=== PATIENT | male | born 1995 | race Asian ===

== ENCOUNTER 2018-10-04 04:50 | Emergency (ER) | payer MEDICAID ==
[~2018-10-04] VITALS: Ht 165.1 cm; Wt 54.4 kg
--- NOTE | 2018-10-04 04:50 | NUR ---
PT BIBA BLS. TAKEN TO BED 9
[2018-10-04 04:51] VITALS: BP 96/60
--- NOTE | 2018-10-04 04:53 | NUR ---
Dr. Garcia evaluating patient.
--- NOTE | 2018-10-04 04:55 | NUR ---
PT TO ED VIA EMS FOR ALTERED MENTAL STATUS. PER EMS PT FOUND IN FRONT OF 10/24. EMS UNABLE TO OBTAIN ANY INFO FROM PT PT REFUSING TO ANSWER QUESTIONS. PT REFUSING TO PROVIDE STAFF WITH INFORMATION BUT ABLE TO FOLLOW COMMANDS. PT NOTED TO LAUGH AND SMILE WHEN ASKED QUESTIONS. PT APPEARS CLEAN, WITH STRONG ODOR OF CIGARETTES. ER MD AT BEDSIDE FOR EVALUATION. CHARGE NURSE TO CALL PD IN ATTEMPT TO OBTAIN MORE INFORMATION.
--- NOTE | 2018-10-04 04:57 | NUR ---
Called [facility], spoke to Laura to obtain information about this patient. Officer's were only able to get patient's first name which they stated was Ambrocio, unable to get a last name, unable to get . Patient refusing to answer questions, follows commands.
--- NOTE | 2018-10-04 05:05 | NUR ---
IV START: L AC 20G, FLUSHED WELL W/O RESISTANCE. NO REDNESS OR SWELLING NOTED. PT TOLERATED WELL. Addendum: 10/04/18 at 0522 by [email or web address] IV START: L AC 20G, FLUSHED WELL W/O RESISTANCE; NO REDNESS OR SWELLING NOTED. PT TOLERATED WELL. LABS DRAWN AT THIS TIME AND SENT TO LAB BY
--- NOTE | 2018-10-04 05:07 | NUR ---
Patient being evaluated by Dr. Garcia at bedside.
--- NOTE | 2018-10-04 05:11 | NUR ---
PT PROVIDED URINAL, ENCOURAGED TO PROVIDED URINE SAME. PT PRIVACY AT THIS TIME.
[2018-10-04 05:37] LABS: ANION GAP 9.9 (8-16); CARBON DIOXIDE 30.2 mmol/L (21-32); CHLORIDE 104 mmol/L (98-107); CREATININE 0.9 mg/dL (0.7-1.3); GFR ARICAN-AMERICAN 129 mL/min (>90); GLUCOSE 99 mg/dL (74-106); POTASSIUM 3.1 mmol/L (3.5-5.1); SODIUM SERUM 141 mmol/L (136-145); UREA NITROGEN, BLOOD 7 mg/dL (7-18)
[2018-10-04 05:37] LABS: BARBITURATE, URINE NEG. ng/ml (NEG <=200); BENZODIAZEPINE, URINE NEG. ng/mL (NEG <=200); CANNABINOID, URINE POS. ng/mL (NEG <=50); COCAINE, URINE NEG. ng/mL (NEG <=300); OPIATE, URINE NEG. ng/mL (NEG <=2000); PHENCYCLIDINE SCREEN,URINE NEG. ng/mL (NEG <=25)
[2018-10-04 05:43] LABS: ALBUMIN 4.3 g/dL (3.4-5.0); ASPARTATE AMINOTRANSFERASE 12 U/L (15-37)
[2018-10-04 05:49] LABS: ACETAMINOPHEN < 0.5 ug/ml (10-30); SALICYLATE < 2.8 mg/dL (2.8-20.0)
--- NOTE | 2018-10-04 06:00 | NUR ---
PT CONTINUES TO LAUGH AND SMILE WHEN SPOKEN TO. STILL REFUSING TO SPEAK OR ANSWER QUESTIONS.
[2018-10-04 06:02] LABS: BASOPHILS % (AUTO) 0.3 % (0.0-2.0); EOSINOPHILS % (AUTO) 0.2 % (0.0-4.0); HEMATOCRIT 45.6 % (36-52); HEMOGLOBIN 15.2 g/dL (12.0-18.0); LYMPHOCYTES # (AUTO) 1.4 K/uL (2.0-11.5); LYMPHOCYTES % (AUTO) 13.8 % (20.5-51.1); MEAN CORPUSCULAR HEMOGLOBIN 31 pg (27-31); MEAN CORPUSCULAR HGB CONC 33 g/dL (33-37); MEAN CORPUSCULAR VOLUME 92.4 fL (80-94); MONOCYTES # (AUTO) 0.4 K/uL (0.8-1.0); MONOCYTES % (AUTO) 4.5 % (1.7-9.3); NEUTROPHILS % (AUTO) 81.2 % (42.2-75.2); PLATELET COUNT (AUTO) 317 K/uL (140-450); RED BLOOD CELL COUNT(AUTO) 4.94 MIL/uL (4.20-6.10); RED CELL DISTRIBUTION WIDTH 13.4 % (11.6-13.7); WHITE BLOOD COUNT (AUTO) 9.9 K/uL (4.8-10.8)
--- NOTE | 2018-10-04 06:54 | NUR ---
IV removed, catheter intact and site benign. Applied folded 4x4 gauze and tape to stop bleeding.
--- NOTE | 2018-10-04 07:20 | NUR ---
REPORT RECEIVED FROM PAU HASSAN FOR CONTINUATION OF CARE.
--- NOTE | 2018-10-04 07:45 | NUR ---
PT RESTING IN BED.
[2018-10-04 08:13] VITALS: BP 115/65
--- NOTE | 2018-10-04 08:14 | NUR ---
Patient discharged with v/s stable. Written and verbal after care instructions given and explained. Pt is non verbal but is alert and responding appropriately with head shaking yes and no, holding my hand when i reach out to assist him up. Pt was able to put his jacket and shoes on by himself. Road tested and pt passed with a steady gait. Provided pt with bus pass and a note that had his address on it, pt confirmed the address was correct with a "yes" head shake.
== END 2018-10-04 08:14 | disposition home or self-care (01) ==
LOC: MED 04:50
DX: F15.10 Other stimulant abuse, uncomplicated (principal); F12.10 Cannabis abuse, uncomplicated
CPT/HCPCS: 36415; 80053; 80305; 85025; 99283; G0480; G0482

== ENCOUNTER 2022-10-24 17:38 | Emergency (ER) | payer SELFPAY ==
[~2022-10-24] VITALS: Ht 172.7 cm; Wt 72.6 kg
[~2022-10-24 17:38] MED LIST: OLAN5TAB65 PO
[2022-10-24 17:47] VITALS: BP 108/53; PULSE 115; RESP 22; TEMP 98; O2SAT 98
[2022-10-24 18:22] LABS: APPEARANCE,URINE CLEAR (CLEAR); BILIRUBIN,URINE NEGATIVE (NEGATIVE); BLOOD, URINE NEGATIVE (NEGATIVE); COLOR,URINE YELLOW (YELLOW); LEUKOCYTE ESTERASE ,URINE NEGATIVE (NEGATIVE); NITRITE, URINE NEGATIVE (NEGATIVE); UGLUCOSE NEGATIVE (NEGATIVE)
[2022-10-24 18:24] LABS: HEMATOCRIT 41.5 % (36-52); MEAN CORPUSCULAR HEMOGLOBIN 31 pg (27-31); MEAN CORPUSCULAR HGB CONC 34 g/dL (33-37); MEAN CORPUSCULAR VOLUME 91.4 fL (80-94); PLATELET COUNT (AUTO) 276 K/uL (140-450); RED BLOOD CELL COUNT(AUTO) 4.55 MIL/uL (4.20-6.10); RED CELL DISTRIBUTION WIDTH 12.6 % (11.6-13.7)
[2022-10-24 18:33] LABS: BARBITURATE, URINE NEGATIVE ng/ml (NEG <=200); BENZODIAZEPINE, URINE NEGATIVE ng/mL (NEG <=200); CANNABINOID, URINE POSITIVE ng/mL (NEG <=50); COCAINE, URINE NEGATIVE ng/mL (NEG <=300); OPIATE, URINE NEGATIVE ng/mL (NEG <=2000); PHENCYCLIDINE SCREEN,URINE NEGATIVE ng/mL (NEG <=25)
[2022-10-24 18:50] LABS: ACETAMINOPHEN < 0.5 ug/ml (10-30); ALBUMIN 4.1 g/dL (3.4-5.0); ASPARTATE AMINOTRANSFERASE 22 U/L (15-37); CHLORIDE 99 mmol/L (98-107); CREATININE 0.9 mg/dL (0.6-1.3); GFR ARICAN-AMERICAN 129 mL/min (>90); GLUCOSE 119 mg/dL (74-106); SALICYLATE < 2.8 mg/dL (2.8-20.0); SODIUM SERUM 135 mmol/L (136-145); TOTAL BILIRUBIN 0.4 mg/dL (0.0-1.0); UREA NITROGEN, BLOOD 11 mg/dL (7-18)
[2022-10-24 18:55] LABS: BASOPHILS % (MANUAL) 0 % (0-2); EOSINOPHILS % (MANUAL) 1 % (0-4); LYMPHOCYTES % (MANUAL) 7 % (20-46); MONOCYTES % (MANUAL) 9 % (5-12)
--- NOTE | 2022-10-24 19:06 | NUR ---
27 YO M JUANGenevieve FROM CLINIC FOR SUICIDAL IDEATION. PT STATES HE'S HEARING VOICES, UNCLEAR SENTENCES. PT STATES HE FEELS LIKE KILLING HIMSELF FOR A FEW DAYS NOW AND WAS SEEN BY PCP TODAY. PT STATES HE ATTENTED SUICIDE SEVERAL YEARS AGO WITH DIFFERENT PILLS AND WAS UNSUCCESSFUL. PT DENIES N,V,D, FEVER, CHILLS, FLU SYMPTOMS, PAIN, INJURY, SOB, CP. ROOM STRIPPED FROM CABLES/SUPPLIES FOR SAFETY, PERSONAL BELONGINGS REMOVED AND SENT TO [facility]. NAD NOTED. SAFETY MAINTAINED. HX:DEPRESSION, SUICIDAL NKA
--- NOTE | 2022-10-24 19:12 | NUR ---
ALS - PATIENT BIBA TO ER BED 05
--- NOTE | 2022-10-24 19:31 | NUR ---
TRANSFER OF CARE TO [facility]. ALL QUESTIONS ANSWERED.
--- NOTE | 2022-10-24 20:00 | NUR ---
telepyschwith Dr. Carmichael bedside
--- NOTE | 2022-10-24 20:15 | NUR ---
pt ambulatory to restroom without assistance
--- NOTE | 2022-10-24 21:00 | NUR ---
pt offered food and liquids, pt stated maybe later. pt resting in room, x2bed rails up for safety. awaiting transfer
[2022-10-24] MEDS: risperiDONE 1 MG TAB PO SCH (21:03)
[2022-10-24 22:31] VITALS: O2SAT 98
--- NOTE | 2022-10-25 00:10 | NUR ---
pt resting in room, awaiting transfer, bed rails up x2 for safety
[2022-10-25 02:20] VITALS: O2SAT 98
--- NOTE | 2022-10-25 03:27 | NUR ---
pt continues to rest in room, awaiting transfer
--- NOTE | 2022-10-25 03:30 | NUR ---
pt ambulated to restroom without assistance
--- NOTE | 2022-10-25 05:45 | NUR ---
pt ambulated to restroom without assistance.
[2022-10-25 05:47] VITALS: O2SAT 98
--- NOTE | 2022-10-25 07:20 | NUR ---
Pt report given to Nelda PEDROZA. Transfer of care at this time.
--- NOTE | 2022-10-25 07:30 | NUR ---
REPORT GIVEN BY YOVANY GOODSON PT IS A 27 YO M BIBA FROM CLINIC FOR SUICIDAL IDEATION. PT STATES HE'S HEARING VOICES, UNCLEAR SENTENCES. PT STATES HE FEELS LIKE KILLING HIMSELF FOR A FEW DAYS NOW AND WAS SEEN BY PCP TODAY. PT STATES HE ATTENTED SUICIDE SEVERAL YEARS AGO WITH DIFFERENT PILLS AND WAS UNSUCCESSFUL. PT DENIES N,V,D, FEVER, CHILLS, FLU SYMPTOMS, PAIN, INJURY, SOB, CP. ROOM STRIPPED FROM CABLES/SUPPLIES FOR SAFETY, PERSONAL BELONGINGS REMOVED AND SENT TO [facility]. NAD NOTED. SAFETY MAINTAINED. HX:DEPRESSION, SUICIDAL NKA
--- NOTE | 2022-10-25 08:00 | NUR ---
PT AMBULATED TO RESTROOM.
--- NOTE | 2022-10-25 08:39 | NUR ---
PT ATE FULL MEAL OF FOOD
--- NOTE | 2022-10-25 08:49 | NUR ---
Patient packet faxed to Brittney Gracia, Nigel Ward, [facility], [facility] mary. [facility]
[2022-10-25 09:29] VITALS: O2SAT 95
[2022-10-25] MEDS ORDERED: IBUPROFEN 600 MG TAB PO ONE (10:05)
[2022-10-25] MEDS: risperiDONE 1 MG TAB PO SCH (10:14)
--- NOTE | 2022-10-25 10:54 | NUR ---
[facility]. [facility], PT WILL NOT BE ABLE TO BE APPEAR AT PO APPOINTMENT DUE TO HOLD. PT TALKING WITH PO ON PHONE. ÓSCAR [phone]
--- NOTE | 2022-10-25 11:17 | NUR ---
PT AMBULATED TO RESTROOM.
--- NOTE | 2022-10-25 11:46 | NUR ---
Pt has been offered lunch tray.
--- NOTE | 2022-10-25 12:14 | NUR ---
Report given to Charge Nurse Alem at [facility]. Pt will be transfered to Crisis Stabilization Unit chair [phone] [facility]. Accpeting provider is [employer] Dio Hunter. Pt has been made aware of plan of care.
--- NOTE | 2022-10-25 14:06 | NUR ---
Pt asleep in bed. Pt in view of nurses station. Pt is not presenting signs of SI at this time.
[2022-10-25 15:06] VITALS: BP 114/65; PULSE 85; RESP 14; TEMP 98.9; O2SAT 96
--- NOTE | 2022-10-25 15:49 | NUR ---
SPOKE TO JULY AT [facility] STATES NO REPORT NEEDED AT THIS TIME. PENDING TX.
--- NOTE | 2022-10-25 17:44 | NUR ---
The patient's care was reviewed and supervised by [facility] ED, RN.
--- NOTE | 2022-10-25 18:38 | NUR ---
PT TX TO [facility] VIA [facility] IN STABLE CONDITION
== END 2022-10-24 18:37 ==
LOC: MED 17:38
DX: R45.851 Suicidal ideations (principal); Z20.822 Contact with and (suspected) exposure to COVID-19
CPT/HCPCS: 36415; 80053; 80305; 81003; 85025; 87426; 87635; 99285; C9803; G0480; G0482